=== PATIENT | female | born 1975 | race American Indian/Alaskan Native ===

== ENCOUNTER 2018-12-25 07:32 | Outpatient (CLI) | payer BC ==
--- NOTE | 2018-12-28 14:26 | Mammography Report ---
DIGITAL SCREENING MAMMOGRAM WITH CAD, 12/25/2018 INDICATION: Routine screening mammography. TECHNIQUE: Digital bilateral 2D mammography was obtained in the craniocaudal and mediolateral obliq ue projections. This examination was interpreted with the benefit of Computer-Aided Detection analysi s. COMPARISON: Baseline mammogram FINDINGS: Breast Density: The breasts are heterogeneously dense, which may obscure small masses. There is no evidence of dominant mass, suspicious calcifications or architectural distortion in the l eft breast. There is a grouped area of fine punctate calcifications in the upper outer quadrant of the right lenora st, anterior depth. These will need to be further evaluated with magnification views. Additionally th ere are a few benign-appearing small nodules in the medial right breast. Right breast ultrasound is r ecommended to confirm benign nature. IMPRESSION: Abnormal appearance of the right mammogram. Recommend magnification views for grouped champ cifications in the upper outer right breast, anterior depth. Recommend right breast ultrasound for small benign nodules in the medial right breast, seen best on t he CC view. BI-RADS Category 0: Incomplete. Needs additional imaging evaluation and/or prior mammograms for asad rison. A "normal" or negative report should not discourage follow up or biopsy of a clinically significant f inding. A written summary of these findings will be mailed to the patient. The patient will be entered into a mammography reporting system which will generate a reminder letter for the patient's next appointmen t at the appropriate interval. The [employer] recommends yearly mammograms starting at age 40 and continuing as l irving as a woman is in good health. Breast MRI is recommended for women with an approximate 20-25% or greater lifetime risk of breast cancer, including women with a strong family history of breast or ova titi cancer or who have been treated for Hodgkin's disease. Signer Name: Bridgette Mcfarland MD Signed: 12/28/2018 2:22 PM Workstation Name: [id number]
== END 2018-12-25 07:33 | disposition home or self-care (01) ==
LOC: MAMMO 07:32
PROVIDERS: ATTEND Obstetrics & Gynecology
DX: Z12.31 Encounter for screening mammogram for malignant neoplasm of breast (principal)
CPT/HCPCS: 77067

== ENCOUNTER 2019-02-25 08:52 | Outpatient (CLI) | payer BC ==
--- NOTE | 2019-02-25 13:54 | Ultrasound Report ---
RIGHT DIGITAL DIAGNOSTIC MAMMOGRAM WITH CAD -- 02/25/2019 RIGHT LIMITED BREAST ULTRASOUND INDICATION: Recall to evaluate calcifications and nodular densities. TECHNIQUE: Digital right mammographic imaging was performed. Magnification views were obtained. Limi theodore ultrasound was performed. This examination was interpreted with the benefit of Computer-Aided Det ection (CAD) analysis. COMPARISON: 12/25/2018 FINDINGS: Breast Density: The breast is heterogeneously dense, which may obscure small masses. MAMMOGRAPHIC FINDINGS: Magnification views of the upper outer breast demonstrate segmental predominan tly punctate and amorphous calcifications with no layering. No associated mass or architectural disto rtion. Spot magnification views of the inner breast demonstrate a persistent nodular density. ULTRASOUND FINDINGS: Targeted ultrasound evaluation was performed of the area of interest. Ultrasou nd of the inner right breast was performed from 1:00 to 6:00 and demonstrated a cyst at 1:00 6 cm fro m the nipple measuring 3 x 3 x 3 mm. It appears to correlate with the dominant mammographic density. An oval heterogeneous smooth predominantly hyperechoic mass at 1:00 at the edge of the areola measure s 5 x 4 x 5 mm. It produces no shadowing. IMPRESSION: Probably benign calcifications and a probably benign 5 mm mass at 1:00 at the edge of the areola. Recommend 6 month follow-up right mammogram for calcifications and targeted ultrasound to re evaluate the mass at 1:00. Follow up recommendation: Short term follow up in 6 months. BI-RADS Category 3: Probably Benign. Followup in 6 months. A "normal" or negative report should not discourage follow up or biopsy of a clinically significant f inding. A written summary of these findings will be mailed to the patient. The patient will be entered into a mammography reporting system which will generate a reminder letter for the patient's next appointmen t at the appropriate interval. According to the [employer], yearly mammograms are recommended starting at age 40 and continuing as long as a woman is in good health. Breast MRI is recommended for women with an justyna roximately 20-25% or greater lifetime risk of breast cancer, including women with a strong family his tory of breast or ovarian cancer and women who have been treated for Hodgkin's disease. Signer Name: Edy Ellington MD Signed: 02/25/2019 1:50 PM Workstation Name: [id number]
== END 2019-02-25 08:53 | disposition home or self-care (01) ==
LOC: MAMMO 08:52
PROVIDERS: ATTEND Obstetrics & Gynecology
DX: R92.8 Other abnormal and inconclusive findings on diagnostic imaging of breast (principal)

== ENCOUNTER 2019-04-20 12:40 | Day surgery (SDC) | payer BC ==
[2019-04-20] MEDS ORDERED: SODIUM CHLORIDE 0.9% 1000 ML 1,000 ML IV SCH (14:27)
--- NOTE | 2019-04-20 14:42 | Anesthesia Consultation ---
Anesthesia Consult and Med Hx Date of service: 04/20/19 - Airway Anesthetic Teeth Evaluation: Good ROM Head & Neck: Adequate Mental/Hyoid Distance: Adequate Mallampati Class: Class III Intubation Access Assessment: Possibly Difficult - Pulmonary Exam CTA: Yes - Cardiac Exam Cardiac Exam: RRR - Pre-Operative Health Status ASA Pre-Surgery Classification: ASA1 Proposed Anesthetic Plan: MAC - Pulmonary Hx Smoking: No Hx Respiratory Symptoms: No - Cardiovascular System Hx Hypertension: No Hx Heart Attack/AMI: No - Central Nervous System CVA: No - Endocrine Hx Renal Disease: No Hx Liver Disease: No Hx Insulin Dependent Diabetes: No Hx Non-Insulin Dependent Diabetes: No Hx Thyroid Disease: No - Other Systems Hx Obesity: Yes (BMI 38) - Additional Comments Anesthesia Medical History Comments: No hx anesthetic complications.
--- NOTE | 2019-04-20 14:42 | Anesthesia Day of Surgery ---
Anesthesia Day of Surgery - Day of Surgery Patient Examined: Yes Patient H&P Reviewed: Yes Patient is NPO: Yes
[2019-04-20] MEDS ORDERED: PROPOFOL 200 MG/20 ML VIAL IV ONE ×2 (14:50)
[2019-04-20] MEDS ORDERED: MIDAZOLAM 2 MG/2 ML INJ ONE (14:50)
--- NOTE | 2019-04-20 15:39 | Procedure Note ---
Date of procedure: 04/20/19 Pre-op diagnosis: Abdominal Pain/GERD/R/O Colitis Post-op diagnosis: other (Mild to Moderate Erosive Esophagitis/Gastritis/R/O Ileitis/R/O Microscopic Colitis/Mild to Moderate Internal Hemorrhoid) Procedure: EGD with Biopsy and Colonoscopy with Biopsy Anesthesia: ALEX Surgeon: MARY NYE Estimated blood loss: minimal Pathology: list Specimen disposition: to lab Condition: stable Disposition: same day (Treat with PPI and prn Bentyl and encourage OTC Probiotic and follow up in 1 to 2 weeks ([phone]).)
--- NOTE | 2019-04-20 15:46 | Operative Report ---
PROCEDURE: Colonoscopy. INDICATIONS: This is a 43-year-old -[place] female, originally from [place], who has been complaining of abdominal pain and discomfort as well as GERD symptoms. EGD has shown presence of moderate erosive esophagitis and gastritis. Colonoscopy was done to make sure there was not any significant lower GI pathology present. DESCRIPTION OF PROCEDURE: Procedure was done after getting informed consent with MAC anesthesia. Initial rectal exam was unremarkable. Instrument was passed through the rectum onto the cecum, which was identified with ileocecal valve and appendiceal orifice. Visualization was fair to slightly poor. The mucosa was washed with copious amounts of water. The terminal ileum was intubated showed normal mucosa. Biopsy was done to rule out for possible ileitis. Cecum, ascending colon, transverse colon, descending colon, and sigmoid likewise showed normal mucosa. Random biopsies were done to rule out for possible microscopic colitis and the rectum showed mild to moderate internal hemorrhoid on the retroverted view. ASSESSMENT: Abdominal pain, rule out microscopic colitis, rule out ileitis. Mild to moderate internal hemorrhoid. PLAN: To treat the patient with Bentyl. I encouraged the patient to take probiotics. Also, treat the patient with PPI because of the EGD findings of moderate erosive esophagitis, gastritis. Have the patient follow up in the office in 1-2 weeks' time and to avoid aspirin and aspirin-related products for the next few days. The procedure was done in the GI lab with assistance of the GI lab team, which included Rhiannon WEINER including mechanical maintenance technician and with the assistance of anesthesia. JOB# [id number] POLLO/KEL
[2019-04-20 16:13] VITALS: BP 121/75
--- NOTE | 2019-04-20 16:24 | Operative Report ---
PROCEDURE: Esophagogastroduodenoscopy with a biopsy. DESCRIPTION OF PROCEDURE: EGD was done after getting the informed consent with MAC anesthesia. Instrument was passed through the hypopharynx into the esophagus, which showed moderate erosive esophagitis and gastritis. Biopsy was done from the gastric antrum and the gastric body. Additional biopsy was done from the distal esophagus. Pylorus is patent. Duodenum in the first and the second portion appeared normal. There was a minimal bleeding from the biopsy site. ASSESSMENT: Abdominal pain, gastroesophageal reflux disease symptoms, moderate erosive esophagitis, and gastritis. PLAN: To do a colonoscopy, treat the patient with PPI and p.r.n. dose of Bentyl, and possibly also encourage the patient to take probiotics. The patient will be asked to follow up in the office in 1-2 weeks' time. Procedure with the assistance of the GI lab team which included HUSAM Wiley,the video game technician and with the assistance of anesthesia. As stated above, treat with PPI, p.r.n. dose of Bentyl, do a colonoscopy, avoid aspirin and aspirin-related products, and follow up in the office in 1-2 weeks. JOB# [id number] POLLO/KEL DUFF
== END 2019-04-20 12:41 | disposition home or self-care (01) ==
LOC: GIO 12:40
DX: R10.9 Unspecified abdominal pain (principal); R14.0 Abdominal distension (gaseous); K21.0 Gastro-esophageal reflux disease with esophagitis; K64.8 Other hemorrhoids; K29.70 Gastritis, unspecified, without bleeding; E66.9 Obesity, unspecified; Z79.899 Other long term (current) drug therapy; Z88.0 Allergy status to penicillin; Z88.8 Allergy status to other drugs, medicaments and biological substances; Z90.49 Acquired absence of other specified parts of digestive tract; Z68.38 Body mass index [BMI] 38.0-38.9, adult; Z98.890 Other specified postprocedural states
CPT/HCPCS: 43239; 45380; 81025; 88305; 88312; 88342; J2250; J2704; J7030

== ENCOUNTER 2019-06-22 07:24 | Outpatient (CLI) | payer BC ==
--- NOTE | 2019-06-22 09:21 | Mammography Report ---
RIGHT DIGITAL DIAGNOSTIC MAMMOGRAM WITH CAD -- 06/22/2019 RIGHT LIMITED BREAST ULTRASOUND INDICATION: Follow-up evaluation of findings noted previously in the right breast. TECHNIQUE: Digital right mammographic imaging was performed. Magnification views were obtained. Limi theodore ultrasound was performed. This examination was interpreted with the benefit of Computer-Aided Det ection (CAD) analysis. COMPARISON: 02/25/2019, 12/25/2018. FINDINGS: Breast Density: The breasts are heterogeneously dense, which may obscure small masses. Magnification views focused in the right upper outer anterior breast in the CC and delayed ML project ions were obtained. These images show a fairly scattered grouping of calcifications measuring up to 5 .8 cm, unchanged in size. These show amorphous appearance on the CC view with subtle layering on the ML view which suggests they likely represent milk of calcium. No interval detrimental change or new s uspicious finding is identified. Additionally, an asymmetry in the medial anterior breast is decrease d in prominence on the current exam. This likely corresponds with the finding noted previously on ult rasound at the 1:00 position. A targeted ultrasound will be performed for further evaluation. Ultrasound Findings: Targeted ultrasound evaluation was performed of the area of interest. A target ed ultrasound focused in the right breast at the 1:00 position, 6 cm from the nipple, shows no eviden ce of residual cystic or solid mass. The findings noted previously on 02/25/2019 ultrasound are no dayan billy present. No new suspicious finding is identified. IMPRESSION: No significant change in probably benign right upper outer anterior breast calcifications. Six-month follow-up magnification views are recommended to assess stability. Previously noted sonographic findings in the right breast at the 1:00 position are no longer identifi ed. No new suspicious finding is identified. BI-RADS Category 3: Probably Benign. A "normal" or negative report should not discourage follow up or biopsy of a clinically significant f inding. A written summary of these findings will be mailed to the patient. The patient will be entered into a mammography reporting system which will generate a reminder letter for the patient's next appointmen t at the appropriate interval. FURTHER INFORMATION: According to the [employer], yearly mammograms are recommend ed starting at age 40 and continuing as long as a woman is in good health. Breast MRI is recommended for women with an approximately 20-25% or greater lifetime risk of breast cancer, including women wi th a strong family history of breast or ovarian cancer and women who have been treated for Hodgkin's disease. Signer Name: Terry Fisher MD Signed: 06/22/2019 9:17 AM Workstation Name: [id number]
== END 2019-06-22 07:25 | disposition home or self-care (01) ==
LOC: MAMMO 07:24
PROVIDERS: ATTEND Obstetrics & Gynecology
DX: R92.2 Inconclusive mammogram (principal)
CPT/HCPCS: 77066

== ENCOUNTER 2019-07-01 06:57 | Outpatient (CLI) | payer BC ==
--- NOTE | 2019-07-01 08:16 | XRay Report ---
CHEST 2 VIEWS INDICATION: COUGH. COMPARISON: None. FINDINGS: Support devices: None. Heart: Within normal limits. Pulmonary vasculature: Normal. Lungs/pleura: The lungs are normally expanded and clear. No airspace disease or pleural effusion. No pneumothorax. Additional findings: None. IMPRESSION: 1. Normal chest. Signer Name: Edy Ellington MD Signed: 07/01/2019 8:12 AM Workstation Name: [id number]
== END 2019-07-01 06:58 | disposition home or self-care (01) ==
LOC: XRAY 06:57
PROVIDERS: ATTEND Internal Medicine
DX: R05 Cough (principal)
CPT/HCPCS: 71046

== ENCOUNTER 2020-01-19 08:33 | Outpatient (CLI) | payer BC ==
--- NOTE | 2020-01-19 09:23 | Mammography Report ---
DIGITAL RIGHT DIAGNOSTIC MAMMOGRAM WITHOUT CAD, WITHOUT TOMOSYNTHESIS 01/19/2020 INDICATION: Follow-up calcifications TECHNIQUE: Digital right mammographic imaging was performed. Magnification views were obtained. COMPARISON: Magnification views 06/22/2019 Breast Density: The breasts are heterogeneously dense, which may obscure small masses. FINDINGS: The loosely grouped microcalcifications in the anterior right breast are unchanged in appea scott IMPRESSION: Stable appearance Follow up recommendation: Return to screening mammography bilaterally in 6 months BI-RADS Category 2: Benign. A "normal" or negative report should not discourage follow up or biopsy of a clinically significant f inding. A written summary of these findings will be mailed to the patient. The patient will be entered into a mammography reporting system which will generate a reminder letter for the patient's next appointmen t at the appropriate interval. According to the [employer], yearly mammograms are recommended starting at age 40 and continuing as long as a woman is in good health. Breast MRI is recommended for women with an justyna roximately 20-25% or greater lifetime risk of breast cancer, including women with a strong family his tory of breast or ovarian cancer and women who have been treated for Hodgkin's disease. Signer Name: Ayad Peterson MD Signed: 01/19/2020 9:19 AM Workstation Name: [id number]
== END 2020-01-19 08:34 | disposition home or self-care (01) ==
LOC: MAMMO 08:33
PROVIDERS: ATTEND Obstetrics & Gynecology
DX: R92.8 Other abnormal and inconclusive findings on diagnostic imaging of breast (principal)
CPT/HCPCS: 77066

== ENCOUNTER 2020-01-20 20:07 | Emergency (ER) | payer BC ==
[2020-01-20 20:26] VITALS: BP 120/76
[2020-01-20] MEDS ORDERED: DIPHtheria,PERTUSSIS(ACELL),TETANUS VACCINE/PF 0.5 ML VIAL IM ONE (20:52)
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
[2020-01-20] MEDS ORDERED: NEOMY 3.5 MG/BACIT 400 UNITS/POLY B 5000 UNITS/GM OINT PACKET TP ONE (21:01)
== END 2020-01-21 01:57 | disposition home or self-care (01) ==
LOC: ED 20:07
DX: S50.812A Abrasion of left forearm, initial encounter (principal); Z90.49 Acquired absence of other specified parts of digestive tract; Z88.0 Allergy status to penicillin; Z88.8 Allergy status to other drugs, medicaments and biological substances; W50.3XXA Accidental bite by another person, initial encounter; Y93.89 Activity, other specified; Y92.89 Other specified places as the place of occurrence of the external cause; Y99.8 Other external cause status
CPT/HCPCS: 90715; 99281; A6250